=== PATIENT | male | born 1940 | race Caucasian/White ===

== ENCOUNTER → 2018-12-15 15:28 | Outpatient (BNV) | payer MEDICARE, SELFPAY ==
--- NOTE | 2018-12-15 15:28 | PR.OPPALCARP ---
OP Palliative Care [facility] Care Plan Follow-up Comments Additional Comments: On 12/09/18 [employer] made follow-up call to [facility] regarding DME referral. AUTOMOBI[employer] ASSEMBLER was informed referral was declined due no contract with patient insurance. [employer]OMOBI[employer]ER faxed new referral to [facility] for DME on 12/15/18. [employer]OBI[employer]ER will follow-up on request. *CWC Office Visit complete CWC Offive Visit Complete CWC Visit Complete?: No
--- NOTE | 2018-12-15 15:31 | CWCCLINC_ITS ---
OP Palliative Care [facility] Care Plan Follow-up Comments Additional Comments: On 12/09/18 [employer]ANCE SCREW[employer] made follow-up call to [facility] regarding DME referral. [employer] SCRE[employer]ER was informed referral was declined due no contract with patient insurance. [employer]ANCE SCREW[employer] POLISHER faxed new referral to [facility] for DME on 12/15/18. [employer]CRE[employer]ER will follow-up on request. *CWC Office Visit complete CWC Offive Visit Complete CWC Visit Complete?: No